=== PATIENT | male | born 1955 | race American Indian/Alaskan Native ===

== ENCOUNTER 2019-02-02 11:02 | Emergency (ER) | payer MEDICAID, MEDICARE, OTHER ==
--- NOTE | 2019-02-02 11:25 | Event Note ---
ED Screening Note Date of service: 02/02/19 ED Screening Note: This initial assessment/diagnostic orders/clinical plan/treatment(s) is/are subject to change based on patients health status, clinical progression and re- assessment by fellow clinical providers in the ED. Further treatment and workup at subsequent clinical providers discretion. Patient/guardian urged not to elope from the ED as their condition may be serious if not clinically assessed and managed. Initial orders include: 63yo BM states that he experienced sudden sharp L back pain after bending to change the tire x 3 days.
[2019-02-02] MEDS ORDERED: traMADol 50 MG TAB PO ONE (12:32)
--- NOTE | 2019-02-02 12:45 | Emergency Department Report ---
ED Back Pain/Injury HPI - General Chief Complaint: Back Pain/Injury Stated Complaint: BACK/L ARM PAIN Time Seen by Provider: 02/02/19 12:20 Source: patient Limitations: No Limitations - History of Present Illness Initial Comments: 63 yo male c/o back pain. Pain started Tuesday after he changed tire on his car. He reports hx of prior back injury and surgery. The pain is locate to left upper back. Denies bowel or bladder incontinence. Denies fall direct blow or trauma MD Complaint: back pain -: Gradual Place: home Severity scale (0 -10): 9 Quality: sharp Consistency: constant Improves With: none Worsens With: none Context: while lifting, turning/twisting Associated Symptoms: denies other symptoms, numbness (he reports prior hx of nerve damage which causes numbness to his arms). denies: weakness, chest pain, difficulty walking, cough, difficulty urinating, diaphoresis, seizure - Related Data Previous Rx's Medication Instructions Recorded Last Taken Type traMADoL [Ultram 50 MG tab] 50 mg PO Q4HR PRN #15 tablet 02/02/19 Unknown Rx Allergies Allergy/AdvReac Type Severity Reaction Status Date / Time Milk Containing Products Allergy Rash Verified 02/02/19 11:15 wheat Allergy Rash Verified 02/02/19 11:15 ED Review of Systems ROS: Stated complaint: BACK/L ARM PAIN Other details as noted in HPI Comment: All other systems reviewed and negative Respiratory: no symptoms reported Cardiovascular: denies: chest pain, dyspnea on exertion Musculoskeletal: back pain Neurological: denies: headache, weakness, abnormal gait, vertigo ED Past Medical Hx - Past Medical History Previous Medical History?: Yes Additional medical history: chronic back pain. carpal tunnel left - Surgical History Past Surgical History?: Yes Additional Surgical History: back surgery - Social History Smoking Status: Never Smoker Substance Use Type: None - Medications Home Medications: Home Medications Medication Instructions Recorded Confirmed Last Taken Type traMADoL [Ultram 50 MG tab] 50 mg PO Q4HR PRN #15 tablet 02/02/19 Unknown Rx ED Physical Exam - General Limitations: No Limitations General appearance: alert, in no apparent distress - Head Head exam: Present: atraumatic - Eye Eye exam: Present: normal appearance - Neck Neck exam: Present: normal inspection - Respiratory Respiratory exam: Present: normal lung sounds bilaterally. Absent: respiratory distress, wheezes, chest wall tenderness - Cardiovascular Cardiovascular Exam: Present: regular rate, normal heart sounds - Rectal Rectal exam: Absent: deferred - Extremities Exam Extremities exam: Present: normal inspection, full ROM, normal capillary refill - Back Exam Back exam: Present: paraspinal tenderness (to left mid back) - Neurological Exam Neurological exam: Present: alert, oriented X3, normal gait ED Course Vital Signs 02/02/19 02/02/19 02/02/19 11:19 12:41 14:04 Temperature 97.9 F Pulse Rate 66 61 Respiratory 20 18 16 Rate Blood Pressure 152/89 Blood Pressure 150/81 [Left] O2 Sat by Pulse 98 100 Oximetry Critical Care Time: No Critical care attestation.: If time is entered above; I have spent that time in minutes in the direct care of this critically ill patient, excluding procedure time. ED Disposition Clinical Impression: Upper back strain Qualifiers: Encounter type: initial encounter Qualified Code(s): S29.012A - Strain of muscle and tendon of back wall of thorax, initial encounter Disposition: - TO HOME OR SELFCARE Is pt being admited?: No Does the pt Need Aspirin: No Condition: Stable Instructions: Muscle Strain (ED) Additional Instructions: No heavy lifting, warm compress to painful area of your back 3-4 times per day. Follow up with your doctor in 2-3 days. Take Tramadol as prescribed for pain and or over the counter Tylenol. Prescriptions: traMADoL [Ultram 50 MG tab] 50 mg PO Q4HR PRN #15 tablet PRN Reason: Pain Referrals: KUMAR ROGER [Primary Care Provider] - 3-5 Days
--- NOTE | 2019-02-02 13:41 | XRay Report ---
LUMBAR SPINE HISTORY: Back pain COMPARISON: None. TECHNIQUE: 2 view(s) of the lumbar spine obtained. FINDINGS: Vertebrae: Normal alignment. No displaced fracture or significant abnormality. Postsurgical change r elated to laminectomy and posterior fixation of L4-L5 with parallel rods and pedicle screws. There is no evidence of hardware loosening or failure. Disc Spaces:Postsurgical change at L4-5 as above. Remaining disc spaces appear preserved. Facet Joints:No significant abnormality. Additional findings: A device is seen overlying the right lower quadrant. IMPRESSION: 1. No acute radiographic abnormality of the lumbar spine. Postsurgical change at L4-5 without eviden ce of complication. Signer Name: Vanda Mcmahon MD Signed: 02/02/2019 1:37 PM Workstation Name: [id number]
--- NOTE | 2019-02-02 13:43 | XRay Report ---
THORACIC SPINE HISTORY: Back pain COMPARISON: None. TECHNIQUE: 3 view(s) of the thoracic spine obtained. FINDINGS: Vertebrae: The upper thoracic spine is partially obscured on the lateral radiograph there is superimp osed structures. Normal alignment. No displaced fracture or significant abnormality. Disc Spaces:Minimal degenerative change in the mid to lower thoracic spine. Paraspinous Soft Tissues:No significant abnormality. Additional findings: A stimulator device is seen with leads terminating in the lower thoracic spine. IMPRESSION: 1. No acute radiographic abnormality of the thoracic spine. Signer Name: Vanda Mcmahon MD Signed: 02/02/2019 1:38 PM Workstation Name: [id number]
[2019-02-02 14:14] VITALS: BP 150/81
== END 2019-02-02 14:04 | disposition home or self-care (01) ==
LOC: ED 11:02
DX: S29.012A Strain of muscle and tendon of back wall of thorax, initial encounter (principal); X58.XXXA Exposure to other specified factors, initial encounter; Y93.89 Activity, other specified; Y92.89 Other specified places as the place of occurrence of the external cause; Y99.8 Other external cause status
CPT/HCPCS: 72070; 72100